=== PATIENT | female | born 1995 | race Hispanic/Latino ===

== ENCOUNTER 2019-07-28 07:34 | Inpatient (IN) ==
[2019-07-28 08:23] LABS: URINE SOURCE VOIDED
[2019-07-28 08:37] LABS: BILIRUBIN URINE NEGATIVE (NEGATIVE); BLOOD URINE NEGATIVE (NEGATIVE); COLOR YELLOW; GLUCOSE URINE NEGATIVE (NEGATIVE); KETONE URINE NEGATIVE (NEGATIVE); LEUKOCYTES URINE LARGE (NEGATIVE); NITRITE URINE NEGATIVE (NEGATIVE); PROTEIN URINE 100 mg/dL (NEGATIVE); SP GRAVITY URINE 1.029; TURBIDITY URINE HAZY (CLEAR); UROBILINOGEN URINE NORMAL (NORMAL)
[2019-07-28] MEDS ORDERED: ZOFRAN IV PRN (09:07)
[2019-07-28] MEDS ORDERED: AMPICILLIN 2 GM in NS 100 ML IV ONE (09:07)
[2019-07-28] MEDS ORDERED: REGLAN PO PRN (09:07)
[2019-07-28] MEDS ORDERED: KEFZOL 2 GM/D5W 2 GM/50 ML IVPB IV PRN (09:07)
[2019-07-28] MEDS ORDERED: LR 500 ML IV ONE (09:07)
[2019-07-28] MEDS ORDERED: PEPCID PO PRN ×2 (09:07)
[2019-07-28] MEDS ORDERED: PEPCID IV PRN (09:07)
[2019-07-28] MEDS ORDERED: TYLENOL PO PRN (09:07)
[2019-07-28] MEDS ORDERED: SODIUM CHLORIDE 0.9% INJ SCH (09:15)
[2019-07-28] MEDS ORDERED: PITOCIN 30 UNITS/NS 30 UNIT/500 ML IV.SOLN IV SCH (09:15)
[2019-07-28] MEDS: STADOL IV PRN ×2 (09:34→13:35)
[2019-07-28] MEDS: LR 1,000 ML IV SCH ×2 (09:35→11:00)
[2019-07-28 10:27] LABS: BASO# 0.01 X1000 (0.0-0.2); BASO% 0.1 % (0.0-0.8); EOS# 0.01 X1000 (0.0-0.7); EOS% 0.1 % (0.0-10.0); HEMOGLOBIN 10.8 g/dL (12.0-16.0); IMM GRAN# 0.02 X1000 (0.0-0.04); IMM GRAN% 0.1 % (0.0-0.5); LYMPH# 1.35 X1000 (1.2-3.4); LYMPH% 9.5 % (20.5-51.1); MCH 22.9 PG (27-31); MCHC 30.9 g/dL (33-37); MCV 74.2 FL (81-99); MONO# 0.41 X1000 (0.11-0.59); MONO% 2.9 % (1.7-9.3); MPV 12.5 FL (7.4-10.4); NEUT# 12.43 X1000 (1.4-6.5); NEUT% 87.3 % (42.2-75.2); PLT 277 X1000 (130-400); RBC 4.72 XMIL (4.2-5.4); RDW 17.9 % (11.5-14.5); WBC 14.23 X1000 (4.8-10.8)
[2019-07-28 10:32] LABS: ANISOCYTOSIS 1+; BANDS 6 % (0-1); HYPOCHROM 1+; LARGE PLATELETS 1+; LYMPHS 8 % (21-51); MICROCYTOSIS 1+; SEGS 86 % (42-75)
[2019-07-28] MEDS ORDERED: FENTANYL-BUPIV-NS 500 MCG-0.125% 250 ML EPIDURAL PRN (10:57)
[2019-07-28] MEDS ORDERED: FENTANYL IV ONE (11:00)
[2019-07-28] MEDS ORDERED: NAROPIN 0.2% INJ ONE (11:00)
[2019-07-28] MEDS ORDERED: STADOL IV PRN (11:22)
[2019-07-28] MEDS ORDERED: PHENERGAN IV PRN (11:24)
[2019-07-28] MEDS ORDERED: SODIUM CHLORIDE 0.9% INJ PRN (11:24)
[2019-07-28 12:31] LABS: UR AMPHETAMINES QUAL NONE DETECTED (NONE DETECT); UR BARBITUATES QUAL NONE DETECTED (NONE DETECT); UR BENZODIAZEPIN QUAL NONE DETECTED (NONE DETECT); UR CANNABINOIDS QUAL NONE DETECTED (NONE DETECT); UR COCAINE QUAL NONE DETECTED (NONE DETECT); UR METHADONE QUAL NONE DETECTED (NONE DETECT); UR OPIATES QUAL NONE DETECTED (NONE DETECT); UR OXYCODONE QUAL NONE DETECTED (NONE DETECT); UR PCP QUAL NONE DETECTED (NONE DETECT)
[2019-07-28] MEDS: AMPICILLIN 1 GM in NS 50 ML IV SCH (13:00)
[2019-07-28] MEDS ORDERED: MINERAL OIL PO ONE (13:05)
[2019-07-28] MEDS ORDERED: XYLOCAINE-MPF 1% INJ ONE (13:05)
[2019-07-28] MEDS: PITOCIN 30 UNITS/NS 30 UNIT/500 ML IV.SOLN IV SCH ×2 (13:32→16:23)
[2019-07-28] MEDS ORDERED: AMBIEN PO PRN (13:57)
[2019-07-28] MEDS ORDERED: M-M-R II VACCINE SUBQ ONE (13:57)
[2019-07-28] MEDS ORDERED: XYLOCAINE-MPF 1% INJ PRN (13:57)
[2019-07-28] MEDS ORDERED: CYTOTEC PO PRN (13:57)
[2019-07-28] MEDS ORDERED: MINERAL OIL PO PRN (13:57)
[2019-07-28] MEDS ORDERED: ATARAX PO PRN (13:57)
[2019-07-28] MEDS ORDERED: NORCO-10 PO PRN (13:57)
[2019-07-28] MEDS ORDERED: PERI MEDS (DERMOPLAST/NUPERCAINAL/TUCKS) MISC PRN (13:57)
[2019-07-28] MEDS ORDERED: BENADRYL IV PRN (13:57)
[2019-07-28] MEDS ORDERED: HYDROXYZINE IM PRN (13:57)
[2019-07-28] MEDS ORDERED: PITOCIN IM PRN (13:57)
[2019-07-28] MEDS ORDERED: BENADRYL PO PRN (13:57)
[2019-07-28] MEDS ORDERED: BOOSTRIX VACCINE IM ONE (13:57)
[2019-07-28] MEDS ORDERED: PITOCIN 20 UNITS/NS 20 UNITS/1,000 ML IV.SOLN IV SCH (14:00)
--- NOTE | 2019-07-28 14:18 | HISTORY AND PHYSICAL ---
HISTORY OF PRESENT ILLNESS: Patient 23-year-old female G1 at 35 and 6/7 weeks presents with uterine contractions, no rupture of membranes and no vaginal bleeding. Estimated date of confinement is 08/26/2019 by a first-trimester ultrasound. care unremarkable to date, except for anemia and she is on iron. PAST MEDICAL HISTORY: Unremarkable. PAST SURGICAL HISTORY: None. PAST OB HISTORY: G1, P0. PSYCHIATRIC TECH HISTORY: Menarche at age 14. REVIEW OF SYSTEMS: All systems reviewed and noncontributory. FAMILY HISTORY: Significant for high blood pressure and diabetes mellitus. SOCIAL HISTORY: Tobacco use none, alcohol use none. MEDICATIONS: vitamins and iron. ALLERGIES: No known drug allergies. PHYSICAL EXAMINATION: Height 5 feet 1 inch, weight 146 pounds, temperature 97.6 degrees, blood pressure 119/81, pulse of 71, respirations 22. heart rate in the 120s with good [id number] variability. HEENT: Pupils equal, round, reactive to light, accommodation. Extraocular movements intact. Oropharynx clear. NECK: Supple. No thyromegaly. LUNGS: Clear to auscultation. HEART: Regular rate and rhythm. ABDOMEN: Gravid, nontender. Cervical exam per nurse was 3 cm dilated, 80% effaced, -2 station. EXTREMITIES: No clubbing, cyanosis or edema noted. NEUROLOGIC: Cranial nerves 2-12 grossly intact. Motor 5/5. DTRs 2+ bilaterally of lower extremities. ASSESSMENT AND PLAN: A 23-year-old female, G1, P0 at 35 and 6/7 weeks in active labor. Patient be admitted. Will add IV antibiotics for group B strep prophylaxis due to prematurity. Anticipate vaginal delivery. Have offered the patient epidural and she is considering at this time. cc: Efrain Chris III, MD
[2019-07-28] MEDS: MOTRIN PO PRN (14:20)
--- NOTE | 2019-07-28 15:57 | OPERATIVE NOTE ---
PROCEDURE DATE: 07/28/2019 VAGINAL DELIVERY NOTE: The patient progressed to complete and pushing, had spontaneous vaginal delivery of a male infant, 4 pounds 2 ounces with Apgars of 6 and 9 at 1330 on 07/28/2019 over a right periurethral laceration and a first-degree vaginal midline tear. Cord blood sample was obtained at this time. Placenta delivered intact with 3 vessel cord. The placenta appeared abnormally small. We will send the placenta to pathology. Repair of right periurethral laceration and first-degree vaginal midline tear with 3-0 chromic in the usual fashion. ESTIMATED BLOOD LOSS: 200 mL. ANESTHESIA: Was 10 mL of 1% lidocaine as well as Stadol IV. COUNTS: All counts were correct x2. cc: Efrain Chris III, MD
[2019-07-29] MEDS: MOTRIN PO PRN ×3 (00:25→20:38)
[2019-07-29] MEDS: PERICOLACE PO SCH ×2 (00:26→20:38)
[2019-07-29] MEDS: PITOCIN 30 UNITS/NS 30 UNIT/500 ML IV.SOLN IV SCH (02:00)
[2019-07-29] MEDS: AMPICILLIN 1 GM in NS 50 ML IV SCH (02:00)
[2019-07-29] MEDS: LR 1,000 ML IV SCH (02:01)
[2019-07-29 06:58] LABS: BASO# 0.02 X1000 (0.0-0.2); BASO% 0.1 % (0.0-0.8); EOS# 0.13 X1000 (0.0-0.7); EOS% 0.7 % (0.0-10.0); HEMATOCRIT 28.3 % (37.0-47.0); HEMOGLOBIN 8.4 g/dL (12.0-16.0); IMM GRAN# 0.04 X1000 (0.0-0.04); IMM GRAN% 0.2 % (0.0-0.5); MCH 22.6 PG (27-31); MCHC 29.7 g/dL (33-37); MCV 76.3 FL (81-99); MONO# 1.28 X1000 (0.11-0.59); MONO% 6.8 % (1.7-9.3); MPV 12.7 FL (7.4-10.4); NEUT# 14.03 X1000 (1.4-6.5); NEUT% 74.2 % (42.2-75.2); PLT 233 X1000 (130-400); RBC 3.71 XMIL (4.2-5.4); RDW 18.2 % (11.5-14.5)
--- NOTE | 2019-07-29 08:06 | OB/GYN PROGRESS NOTE ---
- Subjective PP1 no cx s/nt -cce nl lochia hgb 10.8 to 8.4 A. PP1 P routing pp fci in am w/ iron supplemntation OB Physical Exam Vital Signs - 8 hr 07/29/19 00:25 07/29/19 04:50 Temperature 97.9 F 97.7 F Pulse Rate 90 94 H Respiratory Rate 16 16 Blood Pressure 84/50 103/58 O2 Sat by Pulse Oximetry 100 99 - CONSTITUTIONAL General Appearance: appears well Active Medications Generic Name Dose Route Start Last Admin Trade Name Freq PRN Reason Stop Dose Admin Acetaminophen 650 mg 07/28/19 09:07 Tylenol PO Q4-6H PRN PRN Headache Hydrocodone Bitart/Acetaminophen 1 each 07/28/19 13:57 [place]-5 PO Q3-4H PRN PRN Pain (1-6 on Pain Scale) Hydrocodone Bitart/Acetaminophen 1 each 07/28/19 13:57 07/28/19 14:20 [place]-10 PO 1 each Q3-4H PRN PRN Administration Pain (7-10 on Pain Scale) Benzocaine 1 each 07/28/19 13:57 Xena Meds (Dermoplast/Nupercainal/Tucks) MISC 3-4XDAY PRN PRN episiotomy/hemorrhoids Butorphanol Tartrate 2 mg 07/28/19 09:07 07/28/19 13:35 Stadol IV 07/29/19 22:00 2 mg PRN PRN Administration Pain Butorphanol Tartrate 2 mg 07/28/19 11:22 07/28/19 11:39 Stadol IV 07/29/19 22:00 2 mg Q2H PRN PRN Administration Pain Scale 7-10 Diphenhydramine HCl 12.5 mg 07/28/19 13:57 Benadryl IV Q4H PRN PRN Itching Diphenhydramine HCl 25 mg 07/28/19 13:57 Benadryl PO Q4H PRN PRN Itching Famotidine 20 mg 07/28/19 09:07 Pepcid PO ONCE PRN PRN section Famotidine 20 mg 07/28/19 09:07 Pepcid IV 07/29/19 22:00 Q12H PRN PRN GI upset or indigestion Famotidine 40 mg 07/28/19 09:07 Pepcid PO Q12H PRN PRN GI upset or indigestion Hydroxyzine HCl 50 mg 07/28/19 13:57 Atarax PO Q3-4H PRN PRN Nausea Hydroxyzine HCl 50 mg 07/28/19 13:57 Hydroxyzine IM Q3-4H PRN PRN Nausea Ampicillin Sodium 1 gm/ Sodium 50 mls @ 100 mls/hr 07/28/19 13:10 07/29/19 02:00 Chloride IV 07/29/19 22:00 Not Given Q4H DARLEEN Cefazolin Sodium/Dextrose 2 gm in 50 mls @ 50 mls/hr 07/28/19 09:07 Kefzol 2 Gm/D5w IV 07/29/19 22:00 ONCE PRN PRN section Oxytocin/Sodium Chloride 30 unit in 500 mls @ 0 mls/hr 07/28/19 09:15 Pitocin 30 Units/Ns IV 07/29/19 22:00 .Q0M DARLEEN As Directed Lactated Ringer's 1,000 mls @ 125 mls/hr 07/28/19 09:15 07/29/19 02:01 Lr IV 07/29/19 22:00 Not Given .Q8H DARLEEN Fentanyl/Bupivacaine/Sodium Chlor 250 mls @ 0 mls/hr 07/28/19 10:57 Jsywgmot-Jmagv-Sn 500 Mcg-0.125% EPIDURAL 07/29/19 22:00 .Q0M PRN As Directed Oxytocin/Sodium Chloride 20 units in 1,000 mls @ 0 mls/hr 07/28/19 14:00 07/28/19 14:21 Pitocin 20 Units/Ns IV 07/29/19 22:00 125 mls/hr .Q0M DARLEEN Administration As Directed Oxytocin/Sodium Chloride 30 unit in 500 mls @ 500 mls/hr 07/28/19 14:00 07/29/19 02:00 Pitocin 30 Units/Ns IV 07/29/19 22:00 Not Given .Q1H DARLEEN Ibuprofen 800 mg 07/28/19 13:57 07/29/19 00:25 Motrin PO 800 mg Q8H PRN PRN Administration cramping Lidocaine HCl 30 ml 07/28/19 13:57 07/28/19 13:35 Xylocaine-Mpf 1% INJ 07/29/19 22:00 30 ml PRN PRN Administration Perineal repair Metoclopramide HCl 10 mg 07/28/19 09:07 Reglan PO 07/29/19 22:00 ONCE PRN PRN section Mineral Oil 30 ml 07/28/19 13:57 Mineral Oil PO PRN PRN Perineal massage Misoprostol 800 microgm 07/28/19 13:57 Cytotec PO PRN PRN Severe bleeding Ondansetron HCl 4 mg 07/28/19 09:07 Zofran IV PRN PRN Nausea Oxytocin 20 unit 07/28/19 13:57 Pitocin IM PRN PRN Severe bleeding Promethazine HCl 12.5 mg 07/28/19 11:24 07/28/19 11:39 Phenergan IV 07/29/19 22:00 12.5 mg Q4H PRN PRN Administration Nausea And Vomiting Senna/Docusate Sodium 1 each 07/28/19 21:00 07/29/19 00:26 Pericolace PO 1 each QHS DARLEEN Administration Sodium Chloride 5 - 10 ml 07/28/19 09:15 Sodium Chloride 0.9% INJ 07/29/19 22:00 DIRECTED DARLEEN Sodium Chloride 10 ml 07/28/19 11:24 07/28/19 11:39 Sodium Chloride 0.9% INJ 07/29/19 22:00 10 ml PRN PRN Administration Dilute Phenergan for IV use Zolpidem Tartrate 10 mg 07/28/19 13:57 Ambien PO HS PRN PRN Sleep Laboratory Results - last 24 hr 07/28/19 07/28/19 07/28/19 07:30 07:30 08:50 WBC RBC Hgb Hct MCV MCH MCHC RDW Std Deviation Plt Count MPV Immature Gran % (Auto) Neut % (Auto) Lymph % (Auto) [place] % (Auto) Eos % (Auto) Baso % (Auto) Immature Gran # (Auto) Neut # (Auto) Lymph # (Auto) [place] # (Auto) Eos # (Auto) Baso # (Auto) Segmented Neutrophils Band Neutrophils Lymphocytes Hypochromia Large Platelets Anisocytosis Microcytosis Urine Source VOIDED Urine Color YELLOW Urine Turbidity HAZY Urine pH 7.0 Ur Specific [place] 1.029 Urine Protein 100 A Ur Glucose (Stick) NEGATIVE Ur Ketones (Stick) NEGATIVE Urine Blood NEGATIVE Urine Nitrite NEGATIVE Urine Bilirubin NEGATIVE Urobilinogen Dipstick NORMAL Urine Leukocytes LARGE A Urine Opiates Screen NONE DETECTED Ur Oxycodone Screen NONE DETECTED Ur Methadone, Qual NONE DETECTED Ur Barbiturates Screen NONE DETECTED Ur Phencyclidine Scrn NONE DETECTED Ur Amphetamines Screen NONE DETECTED U Benzodiazepines Scrn NONE DETECTED Urine Cocaine Screen NONE DETECTED U Cannabinoids Screen NONE DETECTED RPR NON-REACTIVE 07/28/19 07/29/19 08:50 05:36 WBC 14.23 H 18.90 H RBC 4.72 3.71 L Hgb 10.8 L 8.4 L D Hct 35.0 L 28.3 L MCV 74.2 L 76.3 L MCH 22.9 L 22.6 L MCHC 30.9 L 29.7 L RDW Std Deviation 17.9 H 18.2 H Plt Count 277 233 MPV 12.5 H 12.7 H Immature Gran % (Auto) 0.1 0.2 Neut % (Auto) 87.3 H 74.2 Lymph % (Auto) 9.5 L 18.0 L [place] % (Auto) 2.9 6.8 Eos % (Auto) 0.1 0.7 Baso % (Auto) 0.1 0.1 Immature Gran # (Auto) 0.02 0.04 Neut # (Auto) 12.43 H 14.03 H Lymph # (Auto) 1.35 3.40 [place] # (Auto) 0.41 1.28 H Eos # (Auto) 0.01 0.13 Baso # (Auto) 0.01 0.02 Segmented Neutrophils 86 H Band Neutrophils 6 H Lymphocytes 8 L Hypochromia 1+ Large Platelets 1+ Anisocytosis 1+ Microcytosis 1+ Urine Source Urine Color Urine Turbidity Urine pH Ur Specific [place] Urine Protein Ur Glucose (Stick) Ur Ketones (Stick) Urine Blood Urine Nitrite Urine Bilirubin Urobilinogen Dipstick Urine Leukocytes Urine Opiates Screen Ur Oxycodone Screen Ur Methadone, Qual Ur Barbiturates Screen Ur Phencyclidine Scrn Ur Amphetamines Screen U Benzodiazepines Scrn Urine Cocaine Screen U Cannabinoids Screen RPR
[2019-07-29] MEDS: NORCO-5 PO PRN ×2 (13:40→20:38)
--- NOTE | 2019-07-30 06:48 | OB/GYN PROGRESS NOTE ---
- Subjective Pt is a PPD#2 s/p . Currently w/o complaints. Pain well controlled. Ambulating and urinating w/o difficulty. Tolerating regular diet. Denies N/V. +Breast and bottle feeding. Decreased lochia OB Physical Exam Vital Signs - 8 hr 07/30/19 01:43 Temperature 96.9 F L Pulse Rate 88 Respiratory Rate 18 Blood Pressure 119/70 O2 Sat by Pulse Oximetry 99 - CONSTITUTIONAL General Appearance: appears well, alert, no apparent distress - GASTROINTESTINAL (ABDOMEN) Abdominal Exam: non tender, soft (FF below umbilcus) - MUSCULOSKELETAL Extremity: non-tender, no pedal edema, no calf tenderness Active Medications Generic Name Dose Route Start Last Admin Trade Name Freq PRN Reason Stop Dose Admin Acetaminophen 650 mg 07/28/19 09:07 Tylenol PO Q4-6H PRN PRN Headache Hydrocodone Bitart/Acetaminophen 1 each 07/28/19 13:57 07/29/19 20:38 [place]-5 PO 1 each Q3-4H PRN PRN Administration Pain (1-6 on Pain Scale) Hydrocodone Bitart/Acetaminophen 1 each 07/28/19 13:57 07/28/19 14:20 [place]-10 PO 1 each Q3-4H PRN PRN Administration Pain (7-10 on Pain Scale) Benzocaine 1 each 07/28/19 13:57 07/30/19 01:49 Xena Meds (Dermoplast/Nupercainal/Tucks) MISC 1 applic 3-4XDAY PRN PRN Administration episiotomy/hemorrhoids Diphenhydramine HCl 25 mg 07/28/19 13:57 Benadryl PO Q4H PRN PRN Itching Famotidine 20 mg 07/28/19 09:07 Pepcid PO ONCE PRN PRN section Famotidine 40 mg 07/28/19 09:07 Pepcid PO Q12H PRN PRN GI upset or indigestion Hydroxyzine HCl 50 mg 07/28/19 13:57 Atarax PO Q3-4H PRN PRN Nausea Hydroxyzine HCl 50 mg 07/28/19 13:57 Hydroxyzine IM Q3-4H PRN PRN Nausea Ibuprofen 800 mg 07/28/19 13:57 07/29/19 20:38 Motrin PO 800 mg Q8H PRN PRN Administration cramping Misoprostol 800 microgm 07/28/19 13:57 Cytotec PO PRN PRN Severe bleeding Oxytocin 20 unit 07/28/19 13:57 Pitocin IM PRN PRN Severe bleeding Senna/Docusate Sodium 1 each 07/28/19 21:00 07/29/19 20:38 Pericolace PO 1 each QHS DARLEEN Administration Zolpidem Tartrate 10 mg 07/28/19 13:57 Ambien PO HS PRN PRN Sleep Laboratory Results - last 24 hr 07/29/19 05:36 WBC 18.90 H RBC 3.71 L Hgb 8.4 L D Hct 28.3 L MCV 76.3 L MCH 22.6 L MCHC 29.7 L RDW Std Deviation 18.2 H Plt Count 233 MPV 12.7 H Immature Gran % (Auto) 0.2 Neut % (Auto) 74.2 Lymph % (Auto) 18.0 L [place] % (Auto) 6.8 Eos % (Auto) 0.7 Baso % (Auto) 0.1 Immature Gran # (Auto) 0.04 Neut # (Auto) 14.03 H Lymph # (Auto) 3.40 [place] # (Auto) 1.28 H Eos # (Auto) 0.13 Baso # (Auto) 0.02 OB Assessment & Plan (1) Vaginal delivery Status: Acute Plan: 23yo PPD#2 s/p -routine PP care -counseled on BC options, plan for BCP -Advised no coitus x 6 weeks -reg diet -oob to ambulation -plan for d/c home
[2019-07-30 10:26] VITALS: BP 124/81
[2019-07-30] MEDS: NORCO-5 PO PRN (10:33)
[2019-07-30] MEDS: MOTRIN PO PRN (10:33)
== END 2019-07-30 13:00 | disposition home or self-care (01) | DRG 807 ==
LOC: OPLD 07:34 → LD 07:35
PROVIDERS: ADMIT Obstetrics & Gynecology; ATTEND Obstetrics & Gynecology